=== PATIENT | male | born 1965 | race Caucasian/White ===

== ENCOUNTER 2019-09-03 08:32 | Emergency (ER) | payer SELFPAY ==
[2019-09-03] MEDS ORDERED: diphenhydrAMINE 12.5 MG/5 ML UDCUP ONE (08:56)
[2019-09-03] MEDS ORDERED: Morphine 4 MG/ML VIAL ONE (08:56)
[2019-09-03] MEDS ORDERED: diphenhydrAMINE 50 MG/ML VIAL ONE (08:57)
[2019-09-03 09:05] LABS: #Basophils 0.1 thou/uL (0.0-0.2); #Eosinphils 0.2 thou/uL (0.0-0.7); #Lymphocytes 1.3 thou/uL (1.20-3.40); #Monocytes 0.5 thou/uL (0.11-0.59); #Neutrophils 12.4 thou/uL (1.40-6.50); %Eosinophils 1.2 % (0.0-10.0); %Lymphocytes 8.8 % (21.0-51.0); %Monocytes 3.7 % (0.0-10.0); %Neutrophils 85.3 % (42.0-75.0); Hemoglobin 16.3 g/dL (14.0-18.0); Mean Corpuscular HGB CONC 32.6 g/dL (32.0-36.0); Mean Corpuscular Hemoglobin 30.6 pg (27.0-31.0); Platelet Count 282 thou/uL (130-400); RBC Distribution Width 12.4 % (11.5-14.5); Red Blood Cell (RBC) Count 5.32 mill/uL (4.70-6.10); White Blood Cell (WBC) Count 14.5 thou/uL (4.8-10.8)
[2019-09-03 09:06] LABS: Bilirubin Negative (Negative); Blood, Urine Trace (Negative); Clarity Clear (Clear); Glucose, Urine (Dipstick) Negative (Negative); Leukocyte Negative (Negative); Nitrite Negative (Negative); Protein, Urine (Dipstick) 30 mg/dL (Neg-Trace); Urobilinogen 0.2 mg/dL (Less than 2)
[2019-09-03 09:15] LABS: Bacteria/HPF 1+ HPF (None Seen); RBC/HPF 0-3 HPF (0-3); Squamous Epithelial 0-3 HPF (0-3); WBC/HPF 0-3 HPF (0-3)
[2019-09-03 09:19] LABS: ALT (SGPT) 52 U/L (8-55); AST (SGOT) 27 U/L (5-34); Albumin 4.7 g/dL (3.5-5.0); Alkaline Phosphatase 96 U/L (40-110); Anion Gap 14 mmol/L (10-20); BUN (Urea Nitrogen) 12 mg/dL (8.4-25.7); Bilirubin, Total 0.4 mg/dL (0.2-1.2); Calc. Creatinine Clearance 0 mL/min (70-130); Calcium 9.8 mg/dL (7.8-10.44); Carbon Dioxide 27 mmol/L (22-29); Chloride 103 mmol/L (98-107); Estimated GFR-MDRD 61; Globulin 2.9 g/dL (2.4-3.5); Glucose 148 mg/dL (70-105); Potassium 4.3 mmol/L (3.5-5.1); Protein, Total 7.6 g/dL (6.0-8.3); Sodium 140 mmol/L (136-145)
[2019-09-03] MEDS ORDERED: hydrALAZINE 20 MG/ML VIAL ONE (09:37)
[2019-09-03] MEDS ORDERED: Ketorolac Tromethamine 30 MG/ML VIAL ONE (09:42)
--- NOTE | 2019-09-03 16:49 | CT ---
CT ABDOMEN AND PELVIS WITHOUT CONTRAST: 09/03/[address] of the abdomen and pelvis was performed for evaluation of left flank pain. Axial slices were acquired followed by coronal and sagittal reconstructions. There is a 4 mm proximal left ureteral calculus at about the L3 level. It is causing mild left hydron ephrosis. Other nonobstructing calculi are seen in each kidney. There is no sign of significant renal mass within the limitations of a noncontrast study. The lung bases are clear except for some lingular scarring. A small hiatal hernia is probably present . Fatty infiltration of the liver is noted. The spleen, pancreas, gallbladder, adrenal glands and abd ominal aorta showed no acute findings. The bowel shows no distention or wall thickening. The appendix appears normal. There are no inflammat ory changes around bowel. No free air or free fluid was seen. CT of the pelvis shows no pelvic masses, fluid collections, or acute inflammatory changes. IMPRESSION: 1. Mild left hydronephrosis due to a 4 mm proximal left ureteral calculus at the L3 level. 2. Nonobstructing renal calculi bilaterally. 3. Diffuse fatty infiltration of the liver. POS: HOME
--- NOTE | 2019-09-03 16:50 | RAD ---
PORTABLE CHEST: 09/03/19 An AP portable film at 0852 is compared with a 10/22/15 study. The heart is normal in size and the lungs are clear. There is no infiltrate, effusion, or congestive change. IMPRESSION: No acute findings. POS: HOME
== END 2019-09-03 10:18 | disposition home or self-care (01) ==
LOC: BURERS 08:32
DX: N13.2 Hydronephrosis with renal and ureteral calculous obstruction (principal); I10 Essential (primary) hypertension; J45.909 Unspecified asthma, uncomplicated; F17.220 Nicotine dependence, chewing tobacco, uncomplicated
CPT/HCPCS: 36415; 71045; 74176; 80053; 81003; 81015; 83605; 83880; 84484; 85025; 85379; 93005; 94760; 96374; 96375; J0360; J1200; J1885; J2270; Q0163